=== PATIENT | female | born 1940 | race Caucasian/White ===

== ENCOUNTER 2018-06-29 07:54 | Day surgery (SDC) | payer OTHER ==
[~2018-06-29] VITALS: Ht 152.4 cm; Wt 67.6 kg
[~2018-06-29 07:54] MED LIST: ABAT250V; ALBU90I INH; ALPR.25 PO; ATECHL PO; ATENOLOL; Anaspaz0.125 MG PO; CALGLU500; CVS CALCIUM 501 EAC2 PO; CYCL10 PO; DOCU100 PO; FISH1000 PO; HCTZ; HYDACE5 PO; HYDCHL25; HYOS.125 PO; MAGOX 400400 MG PO; MAGOXI400 PO; METO25ER; OMEP20ER; OMEP20ER PO; ONDA4ODT PO; OXYC5 PO; POTA8 PO; PRED20 PO; Prilosec Otc20 MG PO; RXCYCL10 PO
== END 2018-06-29 10:37 | disposition home or self-care (01) ==
LOC: ORSCSDS 07:54
DX: R13.10 Dysphagia, unspecified (principal); K29.00 Acute gastritis without bleeding; K22.2 Esophageal obstruction; K44.9 Diaphragmatic hernia without obstruction or gangrene; R00.1 Bradycardia, unspecified; R10.13 Epigastric pain; E03.9 Hypothyroidism, unspecified; E87.6 Hypokalemia; I10 Essential (primary) hypertension; K21.9 Gastro-esophageal reflux disease without esophagitis; E78.5 Hyperlipidemia, unspecified; K31.9 Disease of stomach and duodenum, unspecified; Z87.891 Personal history of nicotine dependence; Z79.82 Long term (current) use of aspirin; Z79.899 Other long term (current) drug therapy
CPT/HCPCS: 88305; 88342; C1726; J7120

== ENCOUNTER 2019-01-26 10:05 | Emergency (ER) | payer OTHER ==
[~2019-01-26] VITALS: Ht 152.4 cm; Wt 62.6 kg
[2019-01-26] MEDS ORDERED: BP PILL PO (10:33)
[2019-01-26] MEDS ORDERED: ABAT250V (10:33)
[2019-01-26] MEDS ORDERED: Norco 7.5-3251 EACH PO (12:06)
== END 2019-01-26 12:40 | disposition home or self-care (01) ==
LOC: ER 10:05
DX: S22.089A Unspecified fracture of T11-T12 vertebra, initial encounter for closed fracture (principal); X58.XXXA Exposure to other specified factors, initial encounter; Z88.5 Allergy status to narcotic agent; Z88.8 Allergy status to other drugs, medicaments and biological substances; Z79.899 Other long term (current) drug therapy; K21.9 Gastro-esophageal reflux disease without esophagitis; I10 Essential (primary) hypertension
CPT/HCPCS: 72080; 99283-25

== ENCOUNTER → 2022-05-02 | Outpatient (CLI) | payer OTHER ==
[~2022-05-02] MED LIST changes: +BP PILL PO; +Norco 7.5-3251 EACH PO
[2022-05-02 19:27] LABS: Bun/Creatinine Ratio 31.7 (12.0-20.0); Creatinine, Blood 0.82 mg/dL (0.40-1.00)
== END | disposition home or self-care (01) ==
LOC: LAB SHORT 18:28 → LAB 18:28
PROVIDERS: Physician Assistant
DX: I10 Essential (primary) hypertension (principal)
CPT/HCPCS: 80048

== ENCOUNTER 2023-01-24 11:43 | Emergency (ER) | payer OTHER ==
[~2023-01-24] VITALS: Ht 149.9 cm; Wt 65.8 kg
[2023-01-24] MEDS ORDERED: HYDCHL25 PO (11:56)
[2023-01-24] MEDS ORDERED: OMEP20ER PO (11:56)
== END 2023-01-24 12:35 | disposition home or self-care (01) ==
LOC: ER 11:43
DX: M25.511 Pain in right shoulder (principal); I10 Essential (primary) hypertension; K21.9 Gastro-esophageal reflux disease without esophagitis; Z88.5 Allergy status to narcotic agent; Z88.8 Allergy status to other drugs, medicaments and biological substances; Z79.899 Other long term (current) drug therapy
CPT/HCPCS: 73030